=== PATIENT | female | born 1995 | race Caucasian/White ===

== ENCOUNTER 2016-09-05 18:48 | Emergency (ER) | payer MEDICAID ==
[~2016-09-05] VITALS: Ht 162.6 cm; Wt 50.0 kg
[2016-09-05] MEDS ORDERED: LORAZEPAM 2MG/ML CPJ IV ONE (19:15)
[2016-09-05] MEDS ORDERED: SODIUM CHLORIDE 0.9% 1,000 ML IV ONE (19:19)
[2016-09-05] MEDS ORDERED: LORAZEPAM 2MG/ML CPJ ONE (19:22)
[2016-09-05 19:54] LABS: BASOPHILS % 0.1 % (0.0-2.0); HEMATOCRIT. 43.2 % (36.0-48.0); HEMOGLOBIN. 14.4 g/dL (12.0-16.0); LYMPHOCYTES % 7.5 % (20.0-50.0); MEAN CORPUSCULAR HEMOGLOBIN 28.2 pg (28.0-32.0); MEAN CORPUSCULAR VOLUME 84.4 fL (81.0-99.0); MEAN PLATELET VOLUME 9.7 fl (7.4-10.4); MONOCYTES % 4.5 % (2.0-8.0); NEUTROPHILS % 87.9 % (40.0-76.0); PLATELET 234 x1000/uL (130-400); RED BLOOD CELL COUNT 5.11 mill/uL (4.2-5.4); RED CELL DISTRIBUTION WIDTH 13.9 % (11.6-14.6)
[2016-09-05 19:59] LABS: CHLORIDE 102 mEq/L (98-107)
[2016-09-05 20:07] LABS: CARBON DIOXIDE 18 mEq/L (21-32); ETHANOL BLOOD < 10 mg/dL
[2016-09-05 20:31] LABS: HCG SCREEN NEGATIVE
[2016-09-05 20:33] LABS: BG BASE EXCESS -4.9 mmol/L (-2.0-2.0); BG CARBOXYHEMOGLOBIN 0.5 % (0.5-1.5); BG FRACTION INSPIRED OXYGEN 36; BG HCO3 ACT 18.7 mmol/L (22.0-26.0); BG METHEMOGLOBIN 0.3 % (0.0-1.5); BG OXYHEMOGLOBIN 98.2 % (94.0-97.0); BG PCO2 30.8 mmHg (35.0-45.0); BG PH 7.402 (7.350-7.450); BG PO2 186.2 mmHg (75.0-100.0); BG SAMPLE SITE LEFT BRACHIAL; BG TOTAL HEMOGLOBIN 13.3 g/dL (12.0-18.0); BG VENT MODE NASAL CANNULA
[2016-09-05 21:41] VITALS: BP 107/71
== END 2016-09-05 21:47 | disposition home or self-care (01) ==
LOC: ER 19:06
DX: F11.23 Opioid dependence with withdrawal (principal); R41.82 Altered mental status, unspecified; R03.0 Elevated blood-pressure reading, without diagnosis of hypertension
CPT/HCPCS: 36415; 36600; 80053; 82375; 82805; 82962; 84703; 85025; 96361; 96374; 99284; G0482; J2060; Z7610; J7030